=== PATIENT | female | born 1970 | race Caucasian/White ===

== ENCOUNTER 2021-03-27 15:03 | Inpatient (IN) | payer OTHER ==
[2021-03-27] MEDS ORDERED: Sodium Chloride 0.9% 10 ML Syringe FLUSH PRN (16:06)
[2021-03-27] MEDS ORDERED: HYDROmorphone 0.5 MG/0.5 ML Syringe IVPUSH ONE ×2 (16:06→17:47)
--- NOTE | 2021-03-27 16:13 | EDM.PDOC ---
ED HPI GENERAL MEDICAL PROBLEM - General Chief Complaint: Abdominal Pain Stated Complaint: ABDOMINAL PAIN Time Seen by Provider: 03/27/21 15:55 Source of Information: Reports: Patient, RN. Denies: Old Records History Limitations: Reports: No Limitations - History of Present Illness INITIAL COMMENTS - FREE TEXT/NARRATIVE: 50 yo female presents with abdominal pain that was present when she awoke yesterday. Pain has slowly gotten worse since then. Has a reduced appetite. When she does eat it doesn't make her worse. Her appendix and uterus are surgically missing. She has known gallstones. Her pain is throughout her abdomen. Moving worsens her pain. No fever, dysuria, diarrhea, nausea, or constipation. 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 (see below) (none) Upper Epigastric Pain Score (Numeric/FACES): 9 - Related Data Allergies Allergy/AdvReac Type Severity Reaction Status Date / Time levofloxacin [From Levaquin] Allergy Agitation Verified 03/27/21 15:30 Penicillins Allergy Hives Verified 03/27/21 15:30 Home Meds: Home Meds Levothyroxine [Synthroid] 100 mcg IVPUSH DAILY 03/27/21 [History] aMILoride [Midamor] 10 mg PO DAILY 03/27/21 [History] atenoloL [Atenolol] 25 mg PO DAILY 03/27/21 [History] 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: - Infectious Disease History Infectious Disease History: Reports: Chicken Pox - Past Surgical History HEENT Surgical History: Reports: Eye Surgery GI Surgical History: Reports: Appendectomy Female Surgical History: Reports: D&C, Hysterectomy, Other (See Below) Other Female Surgeries/Procedures: bladder sling Musculoskeletal Surgical History: Reports: Other (See Below) Other Musculoskeletal Surgeries/Procedures:: cyst removed from spine Social & Family History - Tobacco Use Tobacco Use Status *Q: Never Tobacco User - Caffeine Use Caffeine Use: Reports: Soda ED ROS GENERAL - Review of Systems Review Of Systems: See Below Constitutional: Reports: Decreased Appetite. Denies: Fever HEENT: Reports: No Symptoms Respiratory: Reports: No Symptoms Cardiovascular: Reports: No Symptoms GI/Abdominal: Reports: Abdominal Pain. Denies: Black Stool, Bloody Stool, Constipation, Diarrhea, Distension, Melena, Nausea, Vomiting : Reports: No Symptoms Musculoskeletal: Reports: No Symptoms Skin: Reports: No Symptoms Neurological: Reports: No Symptoms Psychiatric: Reports: No Symptoms ED EXAM, GI/ABD - Physical Exam Exam: See Below Exam Limited By: No Limitations General Appearance: Alert, WD/WN, No Apparent Distress Eyes: Bilateral: Normal Appearance Ears: Normal External Exam, Normal Canal, Hearing Grossly Normal Nose: Normal Inspection, No Blood Throat/Mouth: Normal Inspection, Normal Lips, Normal Oropharynx, Normal Voice, No Airway Compromise Head: Atraumatic, Normocephalic Neck: Normal Inspection Respiratory/Chest: No Respiratory Distress, Lungs Clear, Normal Breath Sounds, No Accessory Muscle Use Cardiovascular: Regular Rate, Rhythm, No Edema GI/Abdominal Exam: Normal Bowel Sounds, Soft, No Distention, Tender (diffusely). No: Non-Tender, Distended Back Exam: Normal Inspection. No: CVA Tenderness (R), CVA Tenderness (L) Extremities: Normal Inspection, Normal Range of Motion, Non-Tender, No Pedal Edema Neurological: Alert, Oriented, CN II-XII Intact, Normal Cognition, No Motor/Sensory Deficits Psychiatric: Normal Affect, Normal Mood Skin Exam: Warm, Dry, Intact, Normal Color, No Rash Course - Vital Signs Last Recorded V/S: Last Vital Signs Temp 36.1 C 03/27/21 15:26 Pulse 78 03/27/21 18:00 Resp 16 03/27/21 15:26 BP 113/67 03/27/21 18:00 Pulse Ox 91 L 03/27/21 18:00 - Orders/Labs/Meds Orders: Active Orders 24 hr Category Date Time Status Iopamidol [Isovue-300 (61%)] Med 03/27/21 17:15 Active 150 ml IV . DIRECTED Lactated Ringers [Ringers, Lactated] 1,000 ml Med 03/27/21 17:00 Active IV ASDIRECTED Sodium Chloride 0.9% [Normal Saline] 80 ml Med 03/27/21 17:15 Active IV ASDIRECTED Sodium Chloride 0.9% [Saline Flush] Med 03/27/21 16:06 Active 10 ml FLUSH ASDIRECTED PRN Saline Lock Insert [OM.PC] Routine Oth 03/27/21 16:06 Ordered Medication Orders Lactated Ringer's (Ringers, Lactated) 1,000 mls @ 500 mls/hr IV ASDIRECTED NAKIA Sodium Chloride (Normal Saline) 80 mls @ 3 mls/sec IV ASDIRECTED NAKIA Last Admin: 03/27/21 17:16 Dose: 3 mls/sec Documented by: CORTES Iopamidol (Iopamidol 612 Mg/Ml 150 Ml Bottle) 150 ml IV . DIRECTED NAKIA Last Admin: 03/27/21 17:16 Dose: 150 ml Documented by: CORTES Sodium Chloride (Sodium Chloride 0.9% 10 Ml Syringe) 10 ml FLUSH ASDIRECTED PRN PRN Reason: Keep Vein Open Last Admin: 03/27/21 16:37 Dose: 10 ml Documented by: DASIA Labs: Laboratory Tests 03/27/21 03/27/21 03/27/21 Range/Units 16:18 16:18 16:46 WBC 13.1 H (4.5-11.0) K/uL RBC 4.65 (3.30-5.50) M/uL Hgb 13.5 (12.0-15.0) g/dL Hct 41.4 (36.0-48.0) % MCV 89 (80-98) fL MCH 29 (27-31) pg MCHC 33 (32-36) % Plt Count 252 (150-400) K/uL Sodium 142 (140-148) mmol/L Potassium 3.7 (3.6-5.2) mmol/L Chloride 106 (100-108) mmol/L Carbon Dioxide 26 (21-32) mmol/L Anion Gap 9.6 (5.0-14.0) mmol/L BUN 13 (7-18) mg/dL Creatinine 0.9 (0.6-1.0) mg/dL Est Cr Clr Drug Dosing 71.56 mL/min Estimated GFR (MDRD) > 60 (>60) Glucose 110 H (74-106) mg/dL Calcium 8.5 (8.5-10.1) mg/dL Total Bilirubin 0.7 (0.2-1.0) mg/dL AST 14 L (15-37) U/L ALT 22 (12-78) U/L Alkaline Phosphatase 76 (46-116) U/L C-Reactive Protein 12.15 H (0.0-0.3) mg/dL Total Protein 6.7 (6.4-8.2) g/dL Albumin 3.3 L (3.4-5.0) g/dL Globulin 3.4 (2.3-3.5) g/dL Albumin/Globulin Ratio 1.0 L (1.2-2.2) Lipase 60 L (73-393) U/L Urine Color Yellow (YELLOW) Urine Appearance Slightly cloudy A (CLEAR) Urine pH 6.0 (5.0-8.0) Ur Specific [place] 1.025 (1.008-1.030) Urine Protein Negative (NEGATIVE) mg/dL Urine Glucose (UA) 100 H (NEGATIVE) mg/dL Urine Ketones Negative (NEGATIVE) mg/dL Urine Occult Blood Trace-intact H (NEGATIVE) Urine Nitrite Negative (NEGATIVE) Urine Bilirubin Negative (NEGATIVE) Urine Urobilinogen 0.2 (0.2-1.0) EU/dL Ur Leukocyte Esterase Negative (NEGATIVE) Urine RBC 5-10 H (0-5) Urine WBC 0-5 (0-5) Ur Epithelial Cells Moderate Amorphous Sediment Not seen Urine Bacteria Many Urine Mucus Rare Meds: Medications Generic Name Dose Route Start Last Admin Trade Name Freq PRN Reason Stop Dose Admin Lactated Ringer's 1,000 mls @ 500 mls/hr 03/27/21 17:00 Ringers, Lactated IV ASDIRECTED NAKIA Sodium Chloride 80 mls @ 3 mls/sec 03/27/21 17:15 03/27/21 17:16 Normal Saline IV 3 mls/sec ASDIRECTED NAKIA Administration Iopamidol 150 ml 03/27/21 17:15 03/27/21 17:16 Iopamidol 612 Mg/Ml 150 Ml Bottle IV 150 ml . DIRECTED NAKIA Administration Sodium Chloride 10 ml 03/27/21 16:06 03/27/21 16:37 Sodium Chloride 0.9% 10 Ml Syringe FLUSH 10 ml ASDIRECTED PRN Administration Keep Vein Open Discontinued Medications Generic Name Dose Route Start Last Admin Trade Name Freq PRN Reason Stop Dose Admin Hydromorphone HCl 0.5 mg 03/27/21 16:06 03/27/21 16:38 Hydromorphone 0.5 Mg/0.5 Ml Syringe IVPUSH 03/27/21 16:07 0.5 mg ONETIME ONE Administration Hydromorphone HCl 0.5 mg 03/27/21 17:47 03/27/21 17:52 Hydromorphone 0.5 Mg/0.5 Ml Syringe IVPUSH 03/27/21 17:48 0.5 mg ONETIME ONE Administration - Radiology Interpretation Free Text/Narrative:: CT abd/pelvis with IV contrast- IMPRESSION: Acute small-bowel diverticulitis involving a loop of small bowel which extends into the pelvis. Tiny foci of free air within the mesentery, suggest micro perforation. No drainable fluid collection is visualized. Dictated by Sandi Hernandez MD @ 03/27/2021 6:08:[address] Results Date: 03/27/21 Departure - Departure Time of Disposition: 18:20 Disposition: Admitted As Inpatient 68 Condition: Fair Clinical Impression: Small bowel diverticular disease - Discharge Information *PRESCRIPTION DRUG MONITORING PROGRAM REVIEWED*: Not Applicable *COPY OF PRESCRIPTION DRUG MONITORING REPORT IN PATIENT TEE: Not Applicable Referrals: PCP,None [Primary Care Provider] - Forms: ED Department Discharge Sepsis Event Note (ED) - Evaluation Sepsis Screening Result: No Definite Risk - Focused Exam Vital Signs: Vital Signs Temp Pulse Resp BP Pulse Ox 03/27/21 18:00 78 113/67 91 L 03/27/21 16:07 78 138/84 95 03/27/21 15:26 36.1 C 94 16 149/88 H 98 - My Orders Last 24 Hours: My Active Orders 03/27/21 16:06 Sodium Chloride 0.9% [Saline Flush] 10 ml FLUSH ASDIRECTED PRN Saline Lock Insert [OM.PC] Routine 03/27/21 17:00 Lactated Ringers [Ringers, Lactated] 1,000 ml IV ASDIRECTED 03/27/21 17:15 Iopamidol [Isovue-300 (61%)] 150 ml IV . DIRECTED Sodium Chloride 0.9% [Normal Saline] 80 ml IV ASDIRECTED - Assessment/Plan Last 24 Hours: My Active Orders 03/27/21 16:06 Sodium Chloride 0.9% [Saline Flush] 10 ml FLUSH ASDIRECTED PRN Saline Lock Insert [OM.PC] Routine 03/27/21 17:00 Lactated Ringers [Ringers, Lactated] 1,000 ml IV ASDIRECTED 03/27/21 17:15 Iopamidol [Isovue-300 (61%)] 150 ml IV . DIRECTED Sodium Chloride 0.9% [Normal Saline] 80 ml IV ASDIRECTED
[2021-03-27] MEDS ORDERED: Lactated Ringers 1,000 ML IV SCH (17:00)
[2021-03-27] MEDS ORDERED: Iopamidol 612 MG/ML 150 ML Bottle IV SCH (17:15)
[2021-03-27] MEDS ORDERED: Sodium Chloride 0.9% 80 ML IV SCH (17:15)
--- NOTE | 2021-03-27 18:10 | CRLCT ---
For Patients: As a result of the Century Cures Act, medical imaging exams and procedure reports are released immediately into your electronic medical record. You may view this report before your referring provider. If you have questions, please contact your health care provider. INDICATION: Diffuse abdominal pain, leukocytosis TECHNIQUE: CT abdomen and pelvis acquired with IV contrast. Approximately 150 cc of Isovue-300 contrast was administered intravenously. COMPARISON: None FINDINGS: The visualized portions of the lung bases are clear. The liver, spleen, pancreas and adrenal glands are unremarkable. The gallbladder contains gallstone and is nondistended. The kidneys enhance symmetrically without hydronephrosis. A 1.7 cm cyst is present on the right. The bladder is minimally distended and unremarkable. The appendix is not visualized. There are scattered diverticuli of the colon without adjacent inflammatory change. There are diverticuli of the small bowel. There is an abnormal loop of small bowel which extends into the pelvis which demonstrates bowel wall thickening and moderate adjacent fat stranding. There is an inflamed small bowel diverticulum (series 2, image 109). A few foci of air is seen within the adjacent mesentery, suggestive of micro perforation. The bones are unremarkable. IMPRESSION: Acute small-bowel diverticulitis involving a loop of small bowel which extends into the pelvis. Tiny foci of free air within the mesentery, suggest micro perforation. No drainable fluid collection is visualized. Dictated by Sandi Hernandez MD @ 03/27/2021 6:08:40 PM Please note that all CT scans at this facility use dose modulation, iterative reconstruction, and/or weight-based dosing when appropriate to reduce radiation dose to as low as reasonably achievable. Dictated by: Sandi Hernandez MD @ 03/27/2021 18:09:07 (Electronically Signed)
--- NOTE | 2021-03-27 18:57 | PCM.HP.2 ---
H&P History of Present Illness - General Date of Service: 03/27/21 Admit Problem/Dx: Admission Diagnosis/Problem Admission Diagnosis/Problem Diverticulitis Source of Information: Patient, Family, Provider History Limitations: Reports: No Limitations - History of Present Illness Initial Comments - Free Text/Narative: CC: My stomach hurt so bad HPI: Julieth presents to the emergency room with progressive sharp abdominal pain that is centered in the lower part of her abdomen but does radiate throughout her abdomen. Pain started yesterday morning about 36 hours prior to admission. It has steadily progressed since that time. Any sort of movement, laughing or bumps in the car ride make the pain worse. She did try to push fluids and took some Tylenol but this did not help her pain. Initially the pain started in the epigastrium but has migrated down to the pelvis area. She had subjective fevers last night but has not had chills. No nausea or vomiting. No change in her bowel habits. No dysuria or urinary frequency. No skin rashes or lumps or bumps. No sick contacts. She did travel here from [facility] but no concerning food ingestions. She does report a history of diverticulosis but has never had infections. Work-up in the emergency room revealed a mild leukocytosis based on lab studies. CT scan of the abdomen and pelvis suggested small bowel diverticulitis with a loop of intestine down in the pelvis. There is concern for microperforations with some air bubbles noted in the omentum. She will be started on IV antibiotics and admitted to the hospital for further management. 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: - Infectious Disease History Infectious Disease History: Reports: Chicken Pox - Past Surgical History HEENT Surgical History: Reports: Eye Surgery GI Surgical History: Reports: Appendectomy Female Surgical History: Reports: D&C, Hysterectomy, Other (See Below) Other Female Surgeries/Procedures: bladder sling Musculoskeletal Surgical History: Reports: Other (See Below) Other Musculoskeletal Surgeries/Procedures:: cyst removed from spine Social & Family History - Family History GI: Reports: Inflammatory Bowel Disease (sister with Crohn's) - Tobacco Use Tobacco Use Status *Q: Never Tobacco User - Caffeine Use Caffeine Use: Reports: Soda - Alcohol Use Alcohol Use History: No H&P Review of Systems - Review of Systems: Review Of Systems: See Below Free Text/Narrative: A complete 12 point review of systems was obtained. Pertinent positives and negatives are noted in the history of present illness. All other systems were reviewed and were negative except as noted. Exam - Exam Exam: See Below - Vital Signs Vital Signs: Last Vital Signs Temp 36.1 C 03/27/21 15:26 Pulse 78 03/27/21 18:00 Resp 16 03/27/21 15:26 BP 113/67 03/27/21 18:00 Pulse Ox 91 L 03/27/21 18:00 Weight: 90.265 kg - Exam Quality Assessment: No: Supplemental Oxygen General: Alert, Oriented, Cooperative, Mild Distress HEENT: Conjunctiva Clear, Mucosa Moist & [place]. No: Scleral Icterus Neck: Supple, Trachea Midline Lungs: Clear to Auscultation, Normal Respiratory Effort Cardiovascular: Regular Rate, Regular Rhythm. No: Systolic Murmur GI/Abdominal Exam: Soft, No Distention, Tender (moderate diffuse and more intense in epigastrium and suprapubic area ). No: Normal Bowel Sounds (hypoactive ) Back Exam: Normal Inspection, Full Range of Motion Extremities: No Pedal Edema. No: Increased Warmth Peripheral Pulses: 2+: Dorsalis Pedis (L), Dorsalis Pedis (R) Skin: Warm, Dry Neuro Extensive - Mental Status: Alert, Oriented x3, Nl Response to Commands Neuro Extensive - Motor, Sensory, Reflexes: No: Dysarthria, Abnormal Motor, Tremor Psychiatric: Alert, Normal Affect - Patient Data Lab Results Last 24 hrs: Laboratory Results - last 24 hr 03/27/21 03/27/21 03/27/21 Range/Units 16:18 16:18 16:46 WBC 13.1 H (4.5-11.0) K/uL RBC 4.65 (3.30-5.50) M/uL Hgb 13.5 (12.0-15.0) g/dL Hct 41.4 (36.0-48.0) % MCV 89 (80-98) fL MCH 29 (27-31) pg MCHC 33 (32-36) % Plt Count 252 (150-400) K/uL Sodium 142 (140-148) mmol/L Potassium 3.7 (3.6-5.2) mmol/L Chloride 106 (100-108) mmol/L Carbon Dioxide 26 (21-32) mmol/L Anion Gap 9.6 (5.0-14.0) mmol/L BUN 13 (7-18) mg/dL Creatinine 0.9 (0.6-1.0) mg/dL Est Cr Clr Drug Dosing 71.56 mL/min Estimated GFR (MDRD) > 60 (>60) Glucose 110 H (74-106) mg/dL Calcium 8.5 (8.5-10.1) mg/dL Total Bilirubin 0.7 (0.2-1.0) mg/dL AST 14 L (15-37) U/L ALT 22 (12-78) U/L Alkaline Phosphatase 76 (46-116) U/L C-Reactive Protein 12.15 H (0.0-0.3) mg/dL Total Protein 6.7 (6.4-8.2) g/dL Albumin 3.3 L (3.4-5.0) g/dL Globulin 3.4 (2.3-3.5) g/dL Albumin/Globulin Ratio 1.0 L (1.2-2.2) Lipase 60 L (73-393) U/L Urine Color Yellow (YELLOW) Urine Appearance Slightly cloudy A (CLEAR) Urine pH 6.0 (5.0-8.0) Ur Specific [place] 1.025 (1.008-1.030) Urine Protein Negative (NEGATIVE) mg/dL Urine Glucose (UA) 100 H (NEGATIVE) mg/dL Urine Ketones Negative (NEGATIVE) mg/dL Urine Occult Blood Trace-intact H (NEGATIVE) Urine Nitrite Negative (NEGATIVE) Urine Bilirubin Negative (NEGATIVE) Urine Urobilinogen 0.2 (0.2-1.0) EU/dL Ur Leukocyte Esterase Negative (NEGATIVE) Urine RBC 5-10 H (0-5) Urine WBC 0-5 (0-5) Ur Epithelial Cells Moderate Amorphous Sediment Not seen Urine Bacteria Many Urine Mucus Rare Result Diagrams: 03/27/21 16:18 03/27/21 16:18 Imaging Impressions Last 24 hrs: CT abd/pelvis-images personally reviewed-there is a loop of small bowel with an inflamed diverticulum and surrounding stranding. There are gas bubbles in the surrounding omentum suggesting microperforations. there is a right renal cyst. There are 2 gallstones but no evidence for cholecystitis. Sepsis Event Note - Evaluation Sepsis Screening Result: No Definite Risk - Focused Exam Vital Signs: Vital Signs Temp Pulse Resp BP Pulse Ox 03/27/21 18:00 78 113/67 91 L 03/27/21 16:07 78 138/84 95 03/27/21 15:26 36.1 C 94 16 149/88 H 98 *Q Meaningful Use (ADM) - VTE Risk Assess *Q Each Risk Factor Represents 1 Point: Age 41 - 59 years, Obesity ( BMI > 25 kg/m2) Total Score 1 Point Risk Factors: 2 Each Risk Factor Represents 2 Points: None Total Score 2 Point Risk Factors: 0 Each Risk Factor Represents 3 Points: None Total Score 3 Point Risk Factors: 0 Each Risk Factor Represents 5 Points: None Total Score 5 Point Risk Factors: 0 Venous Thromboembolism Risk Factor Score *Q: 2 - Problem List (1) Diverticulitis of small intestine with perforation SNOMED Code(s): 46963935, [id number] ICD Code: K57.00 - DVTRCLI OF SM INT W PERFORATION AND ABSCESS W/O BLEEDING Status: Acute Current Visit: Yes Qualifiers: Diverticulitis bleeding: without bleeding Qualified Code(s): K57.00 - Diverticulitis of small intestine with perforation and abscess without bleeding Problem List Initiated/Reviewed/Updated: Yes Orders Last 24hrs: Active Orders 24 hr Category Date Time Status Patient Status Manage Transfer [TRANSFER] Routine ADT 03/27/21 18:47 Ordered Iopamidol [Isovue-300 (61%)] Med 03/27/21 17:15 Active 150 ml IV . DIRECTED Sodium Chloride 0.9% [Normal Saline] 1,000 ml Med 03/27/21 19:00 Active IV ASDIRECTED Sodium Chloride 0.9% [Saline Flush] Med 03/27/21 16:06 Active 10 ml FLUSH ASDIRECTED PRN cefTRIAXone [Rocephin] 2 gm Med 03/27/21 19:00 Active Sodium Chloride 0.9% [Normal Saline] 50 ml IV Q24H Saline Lock Insert [OM.PC] Routine Oth 03/27/21 16:06 Ordered Resuscitation Status Routine Resus Stat 03/27/21 18:48 Ordered Medication Orders Ceftriaxone Sodium 2 gm/ (Sodium Chloride) 50 mls @ 100 mls/hr IV Q24H NAKIA Sodium Chloride (Normal Saline) 1,000 mls @ 125 mls/hr IV ASDIRECTED NAKIA Iopamidol (Iopamidol 612 Mg/Ml 150 Ml Bottle) 150 ml IV . DIRECTED NAKIA Last Admin: 03/27/21 17:16 Dose: 150 ml Documented by: CORTES Sodium Chloride (Sodium Chloride 0.9% 10 Ml Syringe) 10 ml FLUSH ASDIRECTED PRN PRN Reason: Keep Vein Open Last Admin: 03/27/21 16:37 Dose: 10 ml Documented by: DASIA Assessment/Plan Comment:: ASSESSMENT AND PLAN - Diverticulitis of the small intestine with microperforations-significant pain at this time but no nausea. Vitals are stable. Because of the microperforation she would benefit from at least 24 to 48 hours of IV antibiotics. Surgical consultation may be warranted if condition worsens or does not improve. -IV ceftriaxone and metronidazole -Symptomatic management of pain and nausea -Recheck labs in the morning -IV fluids -Surgical consultation if worsening or not getting better Maintenance issues - -DVT prophylaxis-mechanical -GI prophylaxis-not indicated -Nutrition-full liquids -Ryan catheter-not indicated CODE STATUS -full code Admission justification -this patient will be admitted for inpatient services and is medically appropriate meeting medical necessity for inpatient admission as outlined in my documentation. I reasonably expect the patient will require inpatient services that span a period time over 2 midnights. I reasonably expect this patient to be discharged or transferred within 96 hours [facility]. Disposition -I anticipate discharge home after the hospital stay Primary care physician -Dereck Aggarwal M.D. - Mortality Measure Prognosis:: Good
[2021-03-27] MEDS: cefTRIAXone 2 GM in Sodium Chloride 0.9% 50 ML IV SCH (19:30)
[2021-03-27] MEDS ORDERED: HYDROmorphone 1 MG/ML Syringe IVPUSH PRN (19:33)
[2021-03-27] MEDS ORDERED: Ondansetron 4 MG/2 ML SDV IV PRN (19:33)
[2021-03-27] MEDS ORDERED: LORazepam 2 MG/ML SDV IVPUSH PRN (19:33)
[2021-03-27] MEDS ORDERED: Melatonin 3 MG Tab PO PRN (19:33)
[2021-03-27] MEDS ORDERED: Ondansetron 4 MG Tab.DIS PO PRN (19:33)
[2021-03-27] MEDS ORDERED: Magnesium Hydroxide 400 MG/5 ML Susp 30 ML Cup PO PRN (19:33)
[2021-03-27] MEDS: Sodium Chloride 0.9% 1,000 ML IV SCH (19:49)
[2021-03-27] MEDS: metroNIDAZOLE/Normal Saline 500 MG in Premix Bag 1 BAG IV SCH (20:11)
[2021-03-27] MEDS: Acetaminophen 325 MG Tab PO PRN (20:20)
[2021-03-27] MEDS: Lactobacillus Rhamnosus GG (Probiotic) Cap PO SCH (21:39)
[2021-03-27] MEDS: Ibuprofen 600 MG Tab PO PRN (23:21)
[2021-03-28] MEDS: metroNIDAZOLE/Normal Saline 500 MG in Premix Bag 1 BAG IV SCH ×3 (03:56→19:15)
[2021-03-28] MEDS: oxyCODONE 5 MG Tab PO PRN ×3 (04:08→22:22)
[2021-03-28] MEDS: Sodium Chloride 0.9% 1,000 ML IV SCH (06:08)
[2021-03-28] MEDS: Ibuprofen 600 MG Tab PO PRN (07:47)
[2021-03-28] MEDS ORDERED: Potassium Chloride 20 MEQ Tab.ER PO ONE (09:00)
[2021-03-28] MEDS: Lactobacillus Rhamnosus GG (Probiotic) Cap PO SCH ×2 (09:04→20:33)
[2021-03-28] MEDS: Levothyroxine 100 MCG Tab PO SCH (09:04)
[2021-03-28] MEDS: Atenolol 25 MG Tab PO SCH (09:04)
[2021-03-28] MEDS: aMILoride 5 MG Tab PO SCH (09:05)
--- NOTE | 2021-03-28 11:23 | PCM.PN ---
- General Info Date of Service: 03/28/21 Subjective Update: Ms. Samuel has been stable since admission and feels modestly improved with less abdominal pain. Vital signs have remained stable and she has been afebrile. To lerating full liquid diet without significant difficulty. Functional Status: Reports: Tolerating Diet, Ambulating, Urinating - Review of Systems General: Reports: Weakness, Fatigue. Denies: Fever, Chills Pulmonary: Reports: No Symptoms Cardiovascular: Reports: No Symptoms Gastrointestinal: Reports: Abdominal Pain, Nausea. Denies: Diarrhea, Difficulty Swallowing, Hematochezia, Melena, Vomiting Genitourinary: Reports: No Symptoms - Patient Data Vitals - Most Recent: Last Vital Signs Temp 96 F L 03/28/21 10:51 Pulse 53 L 03/28/21 10:51 Resp 16 03/28/21 10:51 BP 116/75 03/28/21 10:51 Pulse Ox 98 03/28/21 10:51 Weight - Most Recent: 203 lb 12.795 oz I&O - Last 24 Hours: Intake & Output 03/27/21 03/28/21 03/28/21 22:59 06:59 14:59 Intake Total 1612 360 Output Total 875 725 300 Balance -875 887 60 Lab Results Last 24 Hours: Laboratory Results - last 24 hr 03/27/21 03/27/21 03/27/21 Range/Units 16:18 16:18 16:46 WBC 13.1 H (4.5-11.0) K/uL RBC 4.65 (3.30-5.50) M/uL Hgb 13.5 (12.0-15.0) g/dL Hct 41.4 (36.0-48.0) % MCV 89 (80-98) fL MCH 29 (27-31) pg MCHC 33 (32-36) % Plt Count 252 (150-400) K/uL Sodium 142 (140-148) mmol/L Potassium 3.7 (3.6-5.2) mmol/L Chloride 106 (100-108) mmol/L Carbon Dioxide 26 (21-32) mmol/L Anion Gap 9.6 (5.0-14.0) mmol/L BUN 13 (7-18) mg/dL Creatinine 0.9 (0.6-1.0) mg/dL Est Cr Clr Drug Dosing 71.56 mL/min Estimated GFR (MDRD) > 60 (>60) Glucose 110 H (74-106) mg/dL Calcium 8.5 (8.5-10.1) mg/dL Total Bilirubin 0.7 (0.2-1.0) mg/dL AST 14 L (15-37) U/L ALT 22 (12-78) U/L Alkaline Phosphatase 76 (46-116) U/L C-Reactive Protein 12.15 H (0.0-0.3) mg/dL Total Protein 6.7 (6.4-8.2) g/dL Albumin 3.3 L (3.4-5.0) g/dL Globulin 3.4 (2.3-3.5) g/dL Albumin/Globulin Ratio 1.0 L (1.2-2.2) Lipase 60 L (73-393) U/L Urine Color Yellow (YELLOW) Urine Appearance Slightly cloudy A (CLEAR) Urine pH 6.0 (5.0-8.0) Ur Specific [place] 1.025 (1.008-1.030) Urine Protein Negative (NEGATIVE) mg/dL Urine Glucose (UA) 100 H (NEGATIVE) mg/dL Urine Ketones Negative (NEGATIVE) mg/dL Urine Occult Blood Trace-intact H (NEGATIVE) Urine Nitrite Negative (NEGATIVE) Urine Bilirubin Negative (NEGATIVE) Urine Urobilinogen 0.2 (0.2-1.0) EU/dL Ur Leukocyte Esterase Negative (NEGATIVE) Urine RBC 5-10 H (0-5) Urine WBC 0-5 (0-5) Ur Epithelial Cells Moderate Amorphous Sediment Not seen Urine Bacteria Many Urine Mucus Rare 03/28/21 03/28/21 Range/Units 04:25 04:25 WBC 8.3 (4.5-11.0) K/uL RBC 4.06 (3.30-5.50) M/uL Hgb 11.7 L (12.0-15.0) g/dL Hct 36.6 (36.0-48.0) % MCV 90 (80-98) fL MCH 29 (27-31) pg MCHC 32 (32-36) % Plt Count 212 (150-400) K/uL Sodium 143 (140-148) mmol/L Potassium 3.4 L (3.6-5.2) mmol/L Chloride 108 (100-108) mmol/L Carbon Dioxide 27 (21-32) mmol/L Anion Gap 11.4 (5.0-14.0) mmol/L BUN 8 (7-18) mg/dL Creatinine 0.7 (0.6-1.0) mg/dL Est Cr Clr Drug Dosing 92.01 mL/min Estimated GFR (MDRD) > 60 (>60) Glucose 110 H (74-106) mg/dL Calcium 7.7 L (8.5-10.1) mg/dL Total Bilirubin (0.2-1.0) mg/dL AST (15-37) U/L ALT (12-78) U/L Alkaline Phosphatase (46-116) U/L C-Reactive Protein (0.0-0.3) mg/dL Total Protein (6.4-8.2) g/dL Albumin (3.4-5.0) g/dL Globulin (2.3-3.5) g/dL Albumin/Globulin Ratio (1.2-2.2) Lipase (73-393) U/L Urine Color (YELLOW) Urine Appearance (CLEAR) Urine pH (5.0-8.0) Ur Specific [place] (1.008-1.030) Urine Protein (NEGATIVE) mg/dL Urine Glucose (UA) (NEGATIVE) mg/dL Urine Ketones (NEGATIVE) mg/dL Urine Occult Blood (NEGATIVE) Urine Nitrite (NEGATIVE) Urine Bilirubin (NEGATIVE) Urine Urobilinogen (0.2-1.0) EU/dL Ur Leukocyte Esterase (NEGATIVE) Urine RBC (0-5) Urine WBC (0-5) Ur Epithelial Cells Amorphous Sediment Urine Bacteria Urine Mucus Med Orders - Current: Current Medications Acetaminophen (Acetaminophen 325 Mg Tab) 650 mg PO Q4H PRN PRN Reason: Pain (Mild 1-3)/fever Last Admin: 03/27/21 20:20 Dose: 650 mg Documented by: Amiloride HCl (Amiloride 5 Mg Tab) 10 mg PO DAILY [facility] Last Admin: 03/28/21 09:05 Dose: 10 mg Documented by: Atenolol (Atenolol 25 Mg Tab) 25 mg PO DAILY [facility] Last Admin: 03/28/21 09:04 Dose: 25 mg Documented by: Hydromorphone HCl (Hydromorphone 1 Mg/Ml Syringe) 0.5 mg IVPUSH Q2H PRN PRN Reason: Pain (severe 7-10) Ceftriaxone Sodium 2 gm/ (Sodium Chloride) 50 mls @ 100 mls/hr IV Q24H [facility] Last Admin: 03/27/21 19:30 Dose: 100 mls/hr Documented by: Metronidazole 500 mg/ Premix 100 mls @ 100 mls/hr IV Q8H [facility] Last Admin: 03/28/21 03:56 Dose: 100 mls/hr Documented by: Ibuprofen (Ibuprofen 600 Mg Tab) 600 mg PO Q6H PRN PRN Reason: Pain (mild 1-3) Last Admin: 03/28/21 07:47 Dose: 600 mg Documented by: Lactobacillus Rhamnosus (Lactobacillus Rhamnosus Gg (Probiotic) Cap) 1 cap PO BID [facility] Last Admin: 03/28/21 09:04 Dose: 1 cap Documented by: Levothyroxine Sodium (Levothyroxine 100 Mcg Tab) 100 mcg PO ACBREAKFAST [facility] Last Admin: 03/28/21 09:04 Dose: 100 mcg Documented by: Lorazepam (Lorazepam 2 Mg/Ml Sdv) 0.5 mg IVPUSH Q4H PRN PRN Reason: Nausea/Vomiting Magnesium Hydroxide (Magnesium Hydroxide 400 Mg/5 Ml Susp 30 Ml Cup) 30 ml PO Q12H PRN PRN Reason: Constipation Melatonin (Melatonin 3 Mg Tab) 9 mg PO BEDTIME PRN PRN Reason: Sleep Ondansetron HCl (Ondansetron 4 Mg/2 Ml Sdv) 4 mg IV Q6H PRN PRN Reason: Nausea/Vomiting Ondansetron HCl (Ondansetron 4 Mg Tab.Dis) 4 mg PO Q6H PRN PRN Reason: Nausea able to take PO Last Admin: 03/28/21 09:51 Dose: 4 mg Documented by: Oxycodone HCl (Oxycodone 5 Mg Tab) 5 - 10 mg PO Q4H PRN PRN Reason: Pain Last Admin: 03/28/21 04:08 Dose: 5 mg Documented by: Senna/Docusate Sodium (Docusate Sodium/Sennosides 50-8.6 Mg Tab) 1 tab PO BID PRN PRN Reason: Constipation Sodium Chloride (Sodium Chloride 0.9% 10 Ml Syringe) 10 ml FLUSH ASDIRECTED PRN PRN Reason: Keep Vein Open Last Admin: 03/27/21 16:37 Dose: 10 ml Documented by: Discontinued Medications Hydromorphone HCl (Hydromorphone 0.5 Mg/0.5 Ml Syringe) 0.5 mg IVPUSH ONETIME ONE Stop: 03/27/21 16:07 Last Admin: 03/27/21 16:38 Dose: 0.5 mg Documented by: Hydromorphone HCl (Hydromorphone 0.5 Mg/0.5 Ml Syringe) 0.5 mg IVPUSH ONETIME ONE Stop: 03/27/21 17:48 Last Admin: 03/27/21 17:52 Dose: 0.5 mg Documented by: Lactated Ringer's (Ringers, Lactated) 1,000 mls @ 500 mls/hr IV ASDIRECTED [facility] Sodium Chloride (Normal Saline) 80 mls @ 3 mls/sec IV ASDIRECTED [facility] Last Admin: 03/27/21 17:16 Dose: 3 mls/sec Documented by: Sodium Chloride (Normal Saline) 1,000 mls @ 125 mls/hr IV ASDIRECTED [facility] Last Admin: 03/28/21 06:08 Dose: 125 mls/hr Documented by: Iopamidol (Iopamidol 612 Mg/Ml 150 Ml Bottle) 150 ml IV . DIRECTED [facility] Last Admin: 03/27/21 17:16 Dose: 150 ml Documented by: Potassium Chloride (Potassium Chloride 20 Meq Tab.Er) 40 meq PO ONETIME ONE Stop: 03/28/21 09:01 Last Admin: 03/28/21 09:06 Dose: 40 meq Documented by: - Exam Quality Assessment: DVT Prophylaxis General: Alert, Oriented, Cooperative, Moderate Distress Lungs: Clear to Auscultation, Normal Respiratory Effort Cardiovascular: Regular Rate, Regular Rhythm, No Murmurs GI/Abdominal Exam: Soft, No Organomegaly, Tender. No: Distended, Guarding, Rigid, Rebound Extremities: Non-Tender, No Pedal Edema - Patient Data Lab Results Last 24 hrs: Laboratory Results - last 24 hr 03/27/21 03/27/21 03/27/21 Range/Units 16:18 16:18 16:46 WBC 13.1 H (4.5-11.0) K/uL RBC 4.65 (3.30-5.50) M/uL Hgb 13.5 (12.0-15.0) g/dL Hct 41.4 (36.0-48.0) % MCV 89 (80-98) fL MCH 29 (27-31) pg MCHC 33 (32-36) % Plt Count 252 (150-400) K/uL Sodium 142 (140-148) mmol/L Potassium 3.7 (3.6-5.2) mmol/L Chloride 106 (100-108) mmol/L Carbon Dioxide 26 (21-32) mmol/L Anion Gap 9.6 (5.0-14.0) mmol/L BUN 13 (7-18) mg/dL Creatinine 0.9 (0.6-1.0) mg/dL Est Cr Clr Drug Dosing 71.56 mL/min Estimated GFR (MDRD) > 60 (>60) Glucose 110 H (74-106) mg/dL Calcium 8.5 (8.5-10.1) mg/dL Total Bilirubin 0.7 (0.2-1.0) mg/dL AST 14 L (15-37) U/L ALT 22 (12-78) U/L Alkaline Phosphatase 76 (46-116) U/L C-Reactive Protein 12.15 H (0.0-0.3) mg/dL Total Protein 6.7 (6.4-8.2) g/dL Albumin 3.3 L (3.4-5.0) g/dL Globulin 3.4 (2.3-3.5) g/dL Albumin/Globulin Ratio 1.0 L (1.2-2.2) Lipase 60 L (73-393) U/L Urine Color Yellow (YELLOW) Urine Appearance Slightly cloudy A (CLEAR) Urine pH 6.0 (5.0-8.0) Ur Specific [place] 1.025 (1.008-1.030) Urine Protein Negative (NEGATIVE) mg/dL Urine Glucose (UA) 100 H (NEGATIVE) mg/dL Urine Ketones Negative (NEGATIVE) mg/dL Urine Occult Blood Trace-intact H (NEGATIVE) Urine Nitrite Negative (NEGATIVE) Urine Bilirubin Negative (NEGATIVE) Urine Urobilinogen 0.2 (0.2-1.0) EU/dL Ur Leukocyte Esterase Negative (NEGATIVE) Urine RBC 5-10 H (0-5) Urine WBC 0-5 (0-5) Ur Epithelial Cells Moderate Amorphous Sediment Not seen Urine Bacteria Many Urine Mucus Rare 03/28/21 03/28/21 Range/Units 04:25 04:25 WBC 8.3 (4.5-11.0) K/uL RBC 4.06 (3.30-5.50) M/uL Hgb 11.7 L (12.0-15.0) g/dL Hct 36.6 (36.0-48.0) % MCV 90 (80-98) fL MCH 29 (27-31) pg MCHC 32 (32-36) % Plt Count 212 (150-400) K/uL Sodium 143 (140-148) mmol/L Potassium 3.4 L (3.6-5.2) mmol/L Chloride 108 (100-108) mmol/L Carbon Dioxide 27 (21-32) mmol/L Anion Gap 11.4 (5.0-14.0) mmol/L BUN 8 (7-18) mg/dL Creatinine 0.7 (0.6-1.0) mg/dL Est Cr Clr Drug Dosing 92.01 mL/min Estimated GFR (MDRD) > 60 (>60) Glucose 110 H (74-106) mg/dL Calcium 7.7 L (8.5-10.1) mg/dL Total Bilirubin (0.2-1.0) mg/dL AST (15-37) U/L ALT (12-78) U/L Alkaline Phosphatase (46-116) U/L C-Reactive Protein (0.0-0.3) mg/dL Total Protein (6.4-8.2) g/dL Albumin (3.4-5.0) g/dL Globulin (2.3-3.5) g/dL Albumin/Globulin Ratio (1.2-2.2) Lipase (73-393) U/L Urine Color (YELLOW) Urine Appearance (CLEAR) Urine pH (5.0-8.0) Ur Specific [place] (1.008-1.030) Urine Protein (NEGATIVE) mg/dL Urine Glucose (UA) (NEGATIVE) mg/dL Urine Ketones (NEGATIVE) mg/dL Urine Occult Blood (NEGATIVE) Urine Nitrite (NEGATIVE) Urine Bilirubin (NEGATIVE) Urine Urobilinogen (0.2-1.0) EU/dL Ur Leukocyte Esterase (NEGATIVE) Urine RBC (0-5) Urine WBC (0-5) Ur Epithelial Cells Amorphous Sediment Urine Bacteria Urine Mucus Result Diagrams: 03/28/21 04:25 03/28/21 04:25 Sepsis Event Note - Evaluation Sepsis Screening Result: No Definite Risk - Focused Exam Vital Signs: Vital Signs Temp Pulse Pulse Resp BP BP Pulse Ox 03/28/21 10:51 96 F L 53 L 16 116/75 98 03/28/21 09:04 60 115/73 03/28/21 07:00 96 F L 60 16 115/73 97 03/28/21 03:00 95.8 F L 66 16 100/58 L 99 - Problem List Review Problem List Initiated/Reviewed/Updated: Yes - My Orders Last 24 Hours: My Active Orders 03/28/21 11:20 Convert IV to Saline Lock [OM.PC] Routine 03/29/21 05:00 BASIC METABOLIC PANEL,BMP [CHEM] Timed CBC WITH AUTO DIFF [HEME] Timed - Plan Plan:: ASSESSMENT AND PLAN - Diverticulitis of the small intestine with microperforations-improved since admission with less abdominal pain. Vital signs have been stable and she has remained afebrile. Tolerating full liquid diet without difficulty. -IV ceftriaxone and metronidazole -Symptomatic management of pain and nausea -Recheck labs in the morning -IV fluids -Surgical consultation if worsening or not getting better Maintenance issues - -DVT prophylaxis-mechanical -GI prophylaxis-not indicated -Nutrition-full liquids -Ryan catheter-not indicated CODE STATUS -full code Admission justification -this patient will be admitted for inpatient services and is medically appropriate meeting medical necessity for inpatient admission as outlined in my documentation. I reasonably expect the patient will require inpatient services that span a period time over 2 midnights. I reasonably expect this patient to be discharged or transferred within 96 hours [facility]. Disposition -I anticipate discharge home after the hospital stay Primary care physician -Dercek Costa
[2021-03-28] MEDS: cefTRIAXone 2 GM in Sodium Chloride 0.9% 50 ML IV SCH (18:01)
[2021-03-29] MEDS ORDERED: diphenhydrAMINE 25 MG Cap PO PRN
[2021-03-29] MEDS: metroNIDAZOLE/Normal Saline 500 MG in Premix Bag 1 BAG IV SCH ×3 (03:39→20:28)
[2021-03-29] MEDS: Acetaminophen 325 MG Tab PO PRN ×2 (04:50→08:41)
[2021-03-29] MEDS: traMADol 50 MG Tab PO PRN ×2 (04:54→13:42)
[2021-03-29] MEDS: Atenolol 25 MG Tab PO SCH (08:40)
[2021-03-29] MEDS: Levothyroxine 100 MCG Tab PO SCH (08:41)
[2021-03-29] MEDS: Lactobacillus Rhamnosus GG (Probiotic) Cap PO SCH ×2 (08:41→20:32)
[2021-03-29] MEDS: aMILoride 5 MG Tab PO SCH (08:41)
--- NOTE | 2021-03-29 15:31 | PCM.PN ---
- General Info Date of Service: 03/29/21 Subjective Update: Ms. Samuel has remained fairly stable over the past 24 hours. She continues to tolerate a full liquid diet. Abdominal pain has improved but not totally resolved. No significant temperature elevations or hemodynamic instability. Functional Status: Reports: Tolerating Diet, Ambulating, Urinating - Review of Systems General: Reports: Weakness, Fatigue. Denies: Fever, Chills Pulmonary: Reports: No Symptoms Cardiovascular: Reports: No Symptoms Gastrointestinal: Reports: Abdominal Pain, Nausea. Denies: Diarrhea, Difficulty Swallowing, Hematochezia, Melena, Vomiting Genitourinary: Reports: No Symptoms - Patient Data Vitals - Most Recent: Last Vital Signs Temp 96.9 F 03/29/21 12:24 Pulse 52 L 03/29/21 12:24 Resp 16 03/29/21 12:24 BP 118/70 03/29/21 12:24 Pulse Ox 96 03/29/21 12:24 Weight - Most Recent: 203 lb 12.795 oz I&O - Last 24 Hours: Intake & Output 03/29/21 03/29/21 03/29/21 06:59 14:59 22:59 Intake Total 800 1240 Balance 800 1240 Lab Results Last 24 Hours: Laboratory Results - last 24 hr 03/29/21 03/29/21 Range/Units 04:35 04:35 WBC 5.2 (4.5-11.0) K/uL RBC 3.86 (3.30-5.50) M/uL Hgb 11.2 L (12.0-15.0) g/dL Hct 35.2 L (36.0-48.0) % MCV 91 (80-98) fL MCH 29 (27-31) pg MCHC 32 (32-36) % Plt Count 221 (150-400) K/uL Neut % (Auto) 63.8 (36-66) % Lymph % (Auto) 24.6 (24-44) % [place] % (Auto) 7.8 H (2-6) % Eos % (Auto) 3.4 (2-4) % Baso % (Auto) 0.4 (0-1) % Sodium 143 (140-148) mmol/L Potassium 3.9 (3.6-5.2) mmol/L Chloride 108 (100-108) mmol/L Carbon Dioxide 29 (21-32) mmol/L Anion Gap 5.8 (5.0-14.0) mmol/L BUN 5 L (7-18) mg/dL Creatinine 0.7 (0.6-1.0) mg/dL Est Cr Clr Drug Dosing 92.51 mL/min Estimated GFR (MDRD) > 60 (>60) Glucose 94 (74-106) mg/dL Calcium 7.8 L (8.5-10.1) mg/dL Med Orders - Current: Current Medications Acetaminophen (Acetaminophen 325 Mg Tab) 650 mg PO Q4H PRN PRN Reason: Pain (Mild 1-3)/fever Last Admin: 03/29/21 08:41 Dose: 650 mg Documented by: Amiloride HCl (Amiloride 5 Mg Tab) 10 mg PO DAILY [facility] Last Admin: 03/29/21 08:41 Dose: 10 mg Documented by: Atenolol (Atenolol 25 Mg Tab) 25 mg PO DAILY [facility] Last Admin: 03/29/21 08:40 Dose: 25 mg Documented by: Diphenhydramine HCl (Diphenhydramine 25 Mg Cap) 25 mg PO Q6H PRN PRN Reason: Itching Last Admin: 03/29/21 00:07 Dose: 25 mg Documented by: Hydromorphone HCl (Hydromorphone 1 Mg/Ml Syringe) 0.5 mg IVPUSH Q2H PRN PRN Reason: Pain (severe 7-10) Ceftriaxone Sodium 2 gm/ (Sodium Chloride) 50 mls @ 100 mls/hr IV Q24H [facility] Last Admin: 03/28/21 18:01 Dose: 100 mls/hr Documented by: Metronidazole 500 mg/ Premix 100 mls @ 100 mls/hr IV Q8H [facility] Last Admin: 03/29/21 12:25 Dose: 100 mls/hr Documented by: Ibuprofen (Ibuprofen 600 Mg Tab) 600 mg PO Q6H PRN PRN Reason: Pain (mild 1-3) Last Admin: 03/28/21 07:47 Dose: 600 mg Documented by: Lactobacillus Rhamnosus (Lactobacillus Rhamnosus Gg (Probiotic) Cap) 1 cap PO BID [facility] Last Admin: 03/29/21 08:41 Dose: 1 cap Documented by: Levothyroxine Sodium (Levothyroxine 100 Mcg Tab) 100 mcg PO ACBREAKFAST [facility] Last Admin: 03/29/21 08:41 Dose: 100 mcg Documented by: Lorazepam (Lorazepam 2 Mg/Ml Sdv) 0.5 mg IVPUSH Q4H PRN PRN Reason: Nausea/Vomiting Magnesium Hydroxide (Magnesium Hydroxide 400 Mg/5 Ml Susp 30 Ml Cup) 30 ml PO Q12H PRN PRN Reason: Constipation Melatonin (Melatonin 3 Mg Tab) 9 mg PO BEDTIME PRN PRN Reason: Sleep Last Admin: 03/28/21 22:22 Dose: 9 mg Documented by: Ondansetron HCl (Ondansetron 4 Mg/2 Ml Sdv) 4 mg IV Q6H PRN PRN Reason: Nausea/Vomiting Ondansetron HCl (Ondansetron 4 Mg Tab.Dis) 4 mg PO Q6H PRN PRN Reason: Nausea able to take PO Last Admin: 03/28/21 09:51 Dose: 4 mg Documented by: Senna/Docusate Sodium (Docusate Sodium/Sennosides 50-8.6 Mg Tab) 1 tab PO BID PRN PRN Reason: Constipation Last Admin: 03/29/21 12:27 Dose: 1 tab Documented by: Sodium Chloride (Sodium Chloride 0.9% 10 Ml Syringe) 10 ml FLUSH ASDIRECTED PRN PRN Reason: Keep Vein Open Last Admin: 03/27/21 16:37 Dose: 10 ml Documented by: Tramadol HCl (Tramadol 50 Mg Tab) 50 mg PO Q6H PRN PRN Reason: Pain Last Admin: 03/29/21 13:42 Dose: 50 mg Documented by: Discontinued Medications Hydromorphone HCl (Hydromorphone 0.5 Mg/0.5 Ml Syringe) 0.5 mg IVPUSH ONETIME ONE Stop: 03/27/21 16:07 Last Admin: 03/27/21 16:38 Dose: 0.5 mg Documented by: Hydromorphone HCl (Hydromorphone 0.5 Mg/0.5 Ml Syringe) 0.5 mg IVPUSH ONETIME ONE Stop: 03/27/21 17:48 Last Admin: 03/27/21 17:52 Dose: 0.5 mg Documented by: Lactated Ringer's (Ringers, Lactated) 1,000 mls @ 500 mls/hr IV ASDIRECTED [facility] Sodium Chloride (Normal Saline) 80 mls @ 3 mls/sec IV ASDIRECTED [facility] Last Admin: 03/27/21 17:16 Dose: 3 mls/sec Documented by: Sodium Chloride (Normal Saline) 1,000 mls @ 125 mls/hr IV ASDIRECTED [facility] Last Admin: 03/28/21 06:08 Dose: 125 mls/hr Documented by: Iopamidol (Iopamidol 612 Mg/Ml 150 Ml Bottle) 150 ml IV . DIRECTED [facility] Last Admin: 03/27/21 17:16 Dose: 150 ml Documented by: Oxycodone HCl (Oxycodone 5 Mg Tab) 5 - 10 mg PO Q4H PRN PRN Reason: Pain Last Admin: 03/28/21 22:22 Dose: 5 mg Documented by: Potassium Chloride (Potassium Chloride 20 Meq Tab.Er) 40 meq PO ONETIME ONE Stop: 03/28/21 09:01 Last Admin: 03/28/21 09:06 Dose: 40 meq Documented by: - Exam Quality Assessment: DVT Prophylaxis General: Alert, Oriented, Cooperative, Mild Distress Lungs: Clear to Auscultation, Normal Respiratory Effort, Decreased Breath Sounds Cardiovascular: Regular Rate, Regular Rhythm, No Murmurs GI/Abdominal Exam: Soft, No Organomegaly, Tender. No: Distended, Guarding, Rigid, Rebound Extremities: Non-Tender, No Pedal Edema - Patient Data Lab Results Last 24 hrs: Laboratory Results - last 24 hr 03/29/21 03/29/21 Range/Units 04:35 04:35 WBC 5.2 (4.5-11.0) K/uL RBC 3.86 (3.30-5.50) M/uL Hgb 11.2 L (12.0-15.0) g/dL Hct 35.2 L (36.0-48.0) % MCV 91 (80-98) fL MCH 29 (27-31) pg MCHC 32 (32-36) % Plt Count 221 (150-400) K/uL Neut % (Auto) 63.8 (36-66) % Lymph % (Auto) 24.6 (24-44) % Caroline % (Auto) 7.8 H (2-6) % Eos % (Auto) 3.4 (2-4) % Baso % (Auto) 0.4 (0-1) % Sodium 143 (140-148) mmol/L Potassium 3.9 (3.6-5.2) mmol/L Chloride 108 (100-108) mmol/L Carbon Dioxide 29 (21-32) mmol/L Anion Gap 5.8 (5.0-14.0) mmol/L BUN 5 L (7-18) mg/dL Creatinine 0.7 (0.6-1.0) mg/dL Est Cr Clr Drug Dosing 92.51 mL/min Estimated GFR (MDRD) > 60 (>60) Glucose 94 (74-106) mg/dL Calcium 7.8 L (8.5-10.1) mg/dL Result Diagrams: 03/29/21 04:35 03/29/21 04:35 Sepsis Event Note - Evaluation Sepsis Screening Result: No Definite Risk - Focused Exam Vital Signs: Vital Signs Temp Pulse Pulse Resp BP BP Pulse Ox 03/29/21 12:24 96.9 F 52 L 16 118/70 96 03/29/21 08:40 84 122/75 03/29/21 08:35 96.5 F L 84 16 122/75 94 L 03/29/21 03:37 96.7 F L 62 16 98/47 L 96 - Problem List Review Problem List Initiated/Reviewed/Updated: Yes - Plan Plan:: ASSESSMENT AND PLAN Diverticulitis of the small intestine with microperforations-improved since admission with less abdominal pain. Vital signs have been stable and she has remained afebrile. Tolerating full liquid diet without difficulty. -IV ceftriaxone and metronidazole -Symptomatic management of pain and nausea -Surgical consultation if worsening or not getting better Maintenance issues - -DVT prophylaxis-mechanical -GI prophylaxis-not indicated -Nutrition-full liquids -Ryan catheter-not indicated CODE STATUS -full code Admission justification -this patient will be admitted for inpatient services and is medically appropriate meeting medical necessity for inpatient admission as outlined in my documentation. I reasonably expect the patient will require inpatient services that span a period time over 2 midnights. I reasonably expect this patient to be discharged or transferred within 96 hours [facility]. Disposition -I anticipate discharge home after the hospital stay Primary care physician -Dereck Costa
[2021-03-29] MEDS: cefTRIAXone 2 GM in Sodium Chloride 0.9% 50 ML IV SCH (19:36)
[2021-03-30] MEDS: metroNIDAZOLE/Normal Saline 500 MG in Premix Bag 1 BAG IV SCH ×3 (03:13→20:08)
[2021-03-30] MEDS: traMADol 50 MG Tab PO PRN (07:39)
[2021-03-30] MEDS: Levothyroxine 100 MCG Tab PO SCH (07:39)
[2021-03-30] MEDS: Atenolol 25 MG Tab PO SCH (09:55)
[2021-03-30] MEDS: Lactobacillus Rhamnosus GG (Probiotic) Cap PO SCH ×2 (09:55→20:10)
[2021-03-30] MEDS: aMILoride 5 MG Tab PO SCH (09:55)
--- NOTE | 2021-03-30 10:50 | PCM.PN ---
- General Info Date of Service: 03/30/21 Subjective Update: Ms. Samuel has remained stable over the last 24 hours. Energy level has improved and she has been able to be walking in the hallways without significant pain. Pain has almost totally resolved but does recur at times. Vital signs have remained stable and she has been afebrile. Functional Status: Reports: Tolerating Diet, Ambulating, Urinating - Review of Systems General: Reports: No Symptoms Pulmonary: Reports: No Symptoms Cardiovascular: Reports: No Symptoms Gastrointestinal: Reports: Abdominal Pain. Denies: Difficulty Swallowing, Hematochezia, Melena, Nausea, Vomiting Genitourinary: Reports: No Symptoms - Patient Data Vitals - Most Recent: Last Vital Signs Temp 96.8 F L 03/30/21 10:31 Pulse 56 L 03/30/21 10:31 Resp 18 03/30/21 10:31 BP 136/80 03/30/21 10:31 Pulse Ox 97 03/30/21 10:31 Weight - Most Recent: 203 lb 12.795 oz I&O - Last 24 Hours: Intake & Output 03/29/21 03/30/21 03/30/21 22:59 06:59 14:59 Intake Total 720 750 Balance 720 750 Med Orders - Current: Current Medications Acetaminophen (Acetaminophen 325 Mg Tab) 650 mg PO Q4H PRN PRN Reason: Pain (Mild 1-3)/fever Last Admin: 03/29/21 08:41 Dose: 650 mg Documented by: Amiloride HCl (Amiloride 5 Mg Tab) 10 mg PO DAILY [facility] Last Admin: 03/30/21 09:55 Dose: 10 mg Documented by: Atenolol (Atenolol 25 Mg Tab) 25 mg PO DAILY [facility] Last Admin: 03/30/21 09:55 Dose: 25 mg Documented by: Diphenhydramine HCl (Diphenhydramine 25 Mg Cap) 25 mg PO Q6H PRN PRN Reason: Itching Last Admin: 03/29/21 00:07 Dose: 25 mg Documented by: Hydromorphone HCl (Hydromorphone 1 Mg/Ml Syringe) 0.5 mg IVPUSH Q2H PRN PRN Reason: Pain (severe 7-10) Ceftriaxone Sodium 2 gm/ (Sodium Chloride) 50 mls @ 100 mls/hr IV Q24H [facility] Last Admin: 03/29/21 19:36 Dose: 100 mls/hr Documented by: Metronidazole 500 mg/ Premix 100 mls @ 100 mls/hr IV Q8H [facility] Last Admin: 03/30/21 03:13 Dose: 100 mls/hr Documented by: Ibuprofen (Ibuprofen 600 Mg Tab) 600 mg PO Q6H PRN PRN Reason: Pain (mild 1-3) Last Admin: 03/28/21 07:47 Dose: 600 mg Documented by: Lactobacillus Rhamnosus (Lactobacillus Rhamnosus Gg (Probiotic) Cap) 1 cap PO BID [facility] Last Admin: 03/30/21 09:55 Dose: 1 cap Documented by: Levothyroxine Sodium (Levothyroxine 100 Mcg Tab) 100 mcg PO ACBREAKFAST [facility] Last Admin: 03/30/21 07:39 Dose: 100 mcg Documented by: Lorazepam (Lorazepam 2 Mg/Ml Sdv) 0.5 mg IVPUSH Q4H PRN PRN Reason: Nausea/Vomiting Magnesium Hydroxide (Magnesium Hydroxide 400 Mg/5 Ml Susp 30 Ml Cup) 30 ml PO Q12H PRN PRN Reason: Constipation Melatonin (Melatonin 3 Mg Tab) 9 mg PO BEDTIME PRN PRN Reason: Sleep Last Admin: 03/28/21 22:22 Dose: 9 mg Documented by: Ondansetron HCl (Ondansetron 4 Mg/2 Ml Sdv) 4 mg IV Q6H PRN PRN Reason: Nausea/Vomiting Ondansetron HCl (Ondansetron 4 Mg Tab.Dis) 4 mg PO Q6H PRN PRN Reason: Nausea able to take PO Last Admin: 03/28/21 09:51 Dose: 4 mg Documented by: Senna/Docusate Sodium (Docusate Sodium/Sennosides 50-8.6 Mg Tab) 1 tab PO BID PRN PRN Reason: Constipation Last Admin: 03/29/21 12:27 Dose: 1 tab Documented by: Sodium Chloride (Sodium Chloride 0.9% 10 Ml Syringe) 10 ml FLUSH ASDIRECTED PRN PRN Reason: Keep Vein Open Last Admin: 03/27/21 16:37 Dose: 10 ml Documented by: Tramadol HCl (Tramadol 50 Mg Tab) 50 mg PO Q6H PRN PRN Reason: Pain Last Admin: 03/30/21 07:39 Dose: 50 mg Documented by: Discontinued Medications Hydromorphone HCl (Hydromorphone 0.5 Mg/0.5 Ml Syringe) 0.5 mg IVPUSH ONETIME ONE Stop: 03/27/21 16:07 Last Admin: 03/27/21 16:38 Dose: 0.5 mg Documented by: Hydromorphone HCl (Hydromorphone 0.5 Mg/0.5 Ml Syringe) 0.5 mg IVPUSH ONETIME ONE Stop: 03/27/21 17:48 Last Admin: 03/27/21 17:52 Dose: 0.5 mg Documented by: Lactated Ringer's (Ringers, Lactated) 1,000 mls @ 500 mls/hr IV ASDIRECTED NAKIA Sodium Chloride (Normal Saline) 80 mls @ 3 mls/sec IV ASDIRECTED NAKIA Last Admin: 03/27/21 17:16 Dose: 3 mls/sec Documented by: Sodium Chloride (Normal Saline) 1,000 mls @ 125 mls/hr IV ASDIRECTED [facility] Last Admin: 03/28/21 06:08 Dose: 125 mls/hr Documented by: Iopamidol (Iopamidol 612 Mg/Ml 150 Ml Bottle) 150 ml IV . DIRECTED [facility] Last Admin: 03/27/21 17:16 Dose: 150 ml Documented by: Oxycodone HCl (Oxycodone 5 Mg Tab) 5 - 10 mg PO Q4H PRN PRN Reason: Pain Last Admin: 03/28/21 22:22 Dose: 5 mg Documented by: Potassium Chloride (Potassium Chloride 20 Meq Tab.Er) 40 meq PO ONETIME ONE Stop: 03/28/21 09:01 Last Admin: 03/28/21 09:06 Dose: 40 meq Documented by: - Exam General: Alert, Oriented, Cooperative, Mild Distress Lungs: Clear to Auscultation, Normal Respiratory Effort Cardiovascular: Regular Rate, Regular Rhythm, No Murmurs GI/Abdominal Exam: Soft, No Organomegaly, Tender. No: Distended, Guarding, Rigid, Rebound Back Exam: Normal Inspection, Full Range of Motion Extremities: Non-Tender, No Pedal Edema - Patient Data Result Diagrams: 03/29/21 04:35 03/29/21 04:35 Sepsis Event Note - Evaluation Sepsis Screening Result: No Definite Risk - Focused Exam Vital Signs: Vital Signs Temp Pulse Pulse Resp BP BP Pulse Ox 03/30/21 10:31 96.8 F L 56 L 18 136/80 97 03/30/21 09:55 65 132/71 03/30/21 07:23 96.6 F L 65 18 132/71 96 03/30/21 03:09 97 F 58 L 16 109/66 98 03/29/21 23:27 97.6 F 75 16 122/64 97 - Problem List Review Problem List Initiated/Reviewed/Updated: Yes - My Orders Last 24 Hours: My Active Orders 03/30/21 Breakfast GI Soft Low Fiber [Soft Diet] [DIET] - Plan Plan:: ASSESSMENT AND PLAN Diverticulitis of the small intestine with microperforations-improved since admission with less abdominal pain. Vital signs have been stable and she has remained afebrile. -IV ceftriaxone and metronidazole -Symptomatic management of pain and nausea -Surgical consultation if worsening or not getting better -Soft low residue diet Maintenance issues - -DVT prophylaxis-mechanical -GI prophylaxis-not indicated -Nutrition-full liquids -Ryan catheter-not indicated CODE STATUS -full code Admission justification -this patient will be admitted for inpatient services and is medically appropriate meeting medical necessity for inpatient admission as outlined in my documentation. I reasonably expect the patient will require inpatient services that span a period time over 2 midnights. I reasonably expect this patient to be discharged or transferred within 96 hours [facility] Disposition -I anticipate discharge home tomorrow Primary care physician -Dereck Georgia
[2021-03-30] MEDS: cefTRIAXone 2 GM in Sodium Chloride 0.9% 50 ML IV SCH (18:10)
[2021-03-31] MEDS: metroNIDAZOLE/Normal Saline 500 MG in Premix Bag 1 BAG IV SCH (04:15)
[2021-03-31] MEDS: Lactobacillus Rhamnosus GG (Probiotic) Cap PO SCH (08:43)
[2021-03-31] MEDS: aMILoride 5 MG Tab PO SCH (08:44)
[2021-03-31] MEDS: Atenolol 25 MG Tab PO SCH (08:44)
[2021-03-31] MEDS: Levothyroxine 100 MCG Tab PO SCH (08:44)
--- NOTE | 2021-03-31 11:33 | PCM.DCSUM1 ---
Discharge Summary - Hospital Course Brief History: Ms. Samuel is a 50-year-old woman who was admitted through the emergency department with abdominal pain and nausea secondary to small bowel diverticulitis. - Discharge Data Discharge Date: 03/31/21 Discharge Disposition: Home, Self-Care 01 Condition: Good - Referral to Home Health Primary Care Physician: PCP None - Discharge Diagnosis/Problem(s) (1) Small bowel diverticular disease SNOMED Code(s): 561992098 ICD Code: K57.10 - DVRTCLOS OF SM INT W/O PERFORATION OR ABSCESS W/O BLEEDING Status: Acute Current Visit: Yes (2) Diverticulitis of small intestine with perforation SNOMED Code(s): 82192743, [id number] ICD Code: K57.00 - DVTRCLI OF SM INT W PERFORATION AND ABSCESS W/O BLEEDING Status: Acute Current Visit: Yes Qualifiers: Diverticulitis bleeding: without bleeding Qualified Code(s): K57.00 - Diverticulitis of small intestine with perforation and abscess without bleeding - Patient Summary/Data Hospital Course: Ms. Samuel presented to the emergency room with progressive sharp abdominal pain that is centered in the lower part of her abdomen but does radiate throughout her abdomen. Pain started yesterday morning about 36 hours prior to admission. It has steadily progressed since that time. Any sort of movement, laughing or bumps in the car ride make the pain worse. She did try to push fluids and took some Tylenol but this did not help her pain. Initially the pain started in the epigastrium but has migrated down to the pelvis area. She did travel here from [facility] but no concerning food ingestions. She does report a history of diverticulosis but has never had infections. Work-up in the emergency room revealed a mild leukocytosis based on lab studies. CT scan of the abdomen and pelvis suggested small bowel diverticulitis with a loop of intestine down in the pelvis. There is concern for microperforations with some air bubbles noted in the omentum. She will be started on IV antibiotics and admitted to the hospital for further management. On admission she was given IV fluids for hydration and continued on IV antibiotic therapy with ceftriaxone and metronidazole. These antibiotics were chosen because of the patient's history of allergic reaction to levofloxacin and penicillins. She gradually improved over the next several days of hospitalization with less abdominal pain. By the time of discharge pain had almost resolved totally. Nausea vomiting resolved and she was started on a full liquid diet which she tolerated without difficulty. By the time of discharge she was on a soft low residue diet which was tolerated well. She remained afebrile as well as hemodynamically stable. Activity will be as tolerated and she will remain on a soft low residue diet over the next few weeks. She will be discharged home with an additional 10 days of oral antibiotic therapy with Omnicef and metronidazole. She will be treated with a more prolonged course of antibiotics because of the microperforations. Follow-up appointment will be scheduled with her primary care provider within 1 week. - Patient Instructions Diet: GI Soft/Low Residue/Low Fiber Activity: As Tolerated Other/Special Instructions: Please schedule follow-up appointment with primary care provider within 1 week. - Discharge Plan *PRESCRIPTION DRUG MONITORING PROGRAM REVIEWED*: Not Applicable *COPY OF PRESCRIPTION DRUG MONITORING REPORT IN PATIENT TEE: Not Applicable Prescriptions/Med Rec: metroNIDAZOLE [Flagyl] 500 mg PO Q8H #30 tab Cefdinir [Omnicef] 300 mg PO BID #20 cap Home Medications: Home Meds Levothyroxine [Synthroid] 100 mcg PO ACBREAKFAST 03/27/21 [History] aMILoride [Midamor] 10 mg PO DAILY 03/27/21 [History] atenoloL [Atenolol] 25 mg PO DAILY 03/27/21 [History] Cefdinir [Omnicef] 300 mg PO BID #20 cap 03/31/21 [Rx] metroNIDAZOLE [Flagyl] 500 mg PO Q8H #30 tab 03/31/21 [Rx] Patient Handouts: Diverticulitis, [id number]-Smom, Low-Fiber Eating Plan - Discharge Summary/Plan Comment DC Time >30 min.: No - Patient Data Vitals - Most Recent: Last Vital Signs Temp 97.4 F 03/31/21 07:00 Pulse 60 03/31/21 08:44 Resp 18 03/31/21 07:00 BP 134/80 03/31/21 08:44 Pulse Ox 95 03/31/21 07:00 Weight - Most Recent: 203 lb 12.795 oz I&O - Last 24 hours: Intake & Output 03/30/21 03/31/21 03/31/21 22:59 06:59 14:59 Intake Total 100 100 Balance 100 100 Med Orders - Current: Current Medications Acetaminophen (Acetaminophen 325 Mg Tab) 650 mg PO Q4H PRN PRN Reason: Pain (Mild 1-3)/fever Last Admin: 03/29/21 08:41 Dose: 650 mg Documented by: Amiloride HCl (Amiloride 5 Mg Tab) 10 mg PO DAILY [facility] Last Admin: 03/31/21 08:44 Dose: 10 mg Documented by: Atenolol (Atenolol 25 Mg Tab) 25 mg PO DAILY [facility] Last Admin: 03/31/21 08:44 Dose: 25 mg Documented by: Diphenhydramine HCl (Diphenhydramine 25 Mg Cap) 25 mg PO Q6H PRN PRN Reason: Itching Last Admin: 03/29/21 00:07 Dose: 25 mg Documented by: Hydromorphone HCl (Hydromorphone 1 Mg/Ml Syringe) 0.5 mg IVPUSH Q2H PRN PRN Reason: Pain (severe 7-10) Ceftriaxone Sodium 2 gm/ (Sodium Chloride) 50 mls @ 100 mls/hr IV Q24H [facility] Last Admin: 03/30/21 18:10 Dose: 100 mls/hr Documented by: Metronidazole 500 mg/ Premix 100 mls @ 100 mls/hr IV Q8H [facility] Last Admin: 03/31/21 04:15 Dose: 100 mls/hr Documented by: Ibuprofen (Ibuprofen 600 Mg Tab) 600 mg PO Q6H PRN PRN Reason: Pain (mild 1-3) Last Admin: 03/28/21 07:47 Dose: 600 mg Documented by: Lactobacillus Rhamnosus (Lactobacillus Rhamnosus Gg (Probiotic) Cap) 1 cap PO BID [facility] Last Admin: 03/31/21 08:43 Dose: 1 cap Documented by: Levothyroxine Sodium (Levothyroxine 100 Mcg Tab) 100 mcg PO ACBREAKFAST [facility] Last Admin: 03/31/21 08:44 Dose: 100 mcg Documented by: Lorazepam (Lorazepam 2 Mg/Ml Sdv) 0.5 mg IVPUSH Q4H PRN PRN Reason: Nausea/Vomiting Magnesium Hydroxide (Magnesium Hydroxide 400 Mg/5 Ml Susp 30 Ml Cup) 30 ml PO Q12H PRN PRN Reason: Constipation Melatonin (Melatonin 3 Mg Tab) 9 mg PO BEDTIME PRN PRN Reason: Sleep Last Admin: 03/28/21 22:22 Dose: 9 mg Documented by: Ondansetron HCl (Ondansetron 4 Mg/2 Ml Sdv) 4 mg IV Q6H PRN PRN Reason: Nausea/Vomiting Ondansetron HCl (Ondansetron 4 Mg Tab.Dis) 4 mg PO Q6H PRN PRN Reason: Nausea able to take PO Last Admin: 03/28/21 09:51 Dose: 4 mg Documented by: Senna/Docusate Sodium (Docusate Sodium/Sennosides 50-8.6 Mg Tab) 1 tab PO BID PRN PRN Reason: Constipation Last Admin: 03/29/21 12:27 Dose: 1 tab Documented by: Sodium Chloride (Sodium Chloride 0.9% 10 Ml Syringe) 10 ml FLUSH ASDIRECTED PRN PRN Reason: Keep Vein Open Last Admin: 03/27/21 16:37 Dose: 10 ml Documented by: Tramadol HCl (Tramadol 50 Mg Tab) 50 mg PO Q6H PRN PRN Reason: Pain Last Admin: 03/30/21 07:39 Dose: 50 mg Documented by: Discontinued Medications Hydromorphone HCl (Hydromorphone 0.5 Mg/0.5 Ml Syringe) 0.5 mg IVPUSH ONETIME ONE Stop: 03/27/21 16:07 Last Admin: 03/27/21 16:38 Dose: 0.5 mg Documented by: Hydromorphone HCl (Hydromorphone 0.5 Mg/0.5 Ml Syringe) 0.5 mg IVPUSH ONETIME ONE Stop: 03/27/21 17:48 Last Admin: 03/27/21 17:52 Dose: 0.5 mg Documented by: Lactated Ringer's (Ringers, Lactated) 1,000 mls @ 500 mls/hr IV ASDIRECTED [facility] Sodium Chloride (Normal Saline) 80 mls @ 3 mls/sec IV ASDIRECTED [facility] Last Admin: 03/27/21 17:16 Dose: 3 mls/sec Documented by: Sodium Chloride (Normal Saline) 1,000 mls @ 125 mls/hr IV ASDIRECTED [facility] Last Admin: 03/28/21 06:08 Dose: 125 mls/hr Documented by: Iopamidol (Iopamidol 612 Mg/Ml 150 Ml Bottle) 150 ml IV . DIRECTED [facility] Last Admin: 03/27/21 17:16 Dose: 150 ml Documented by: Oxycodone HCl (Oxycodone 5 Mg Tab) 5 - 10 mg PO Q4H PRN PRN Reason: Pain Last Admin: 03/28/21 22:22 Dose: 5 mg Documented by: Potassium Chloride (Potassium Chloride 20 Meq Tab.Er) 40 meq PO ONETIME ONE Stop: 03/28/21 09:01 Last Admin: 03/28/21 09:06 Dose: 40 meq Documented by:
== END 2021-03-31 12:15 | disposition home or self-care (01) | DRG 392 ==
LOC: JP.ED 15:03 → JP.MS 18:47
PROVIDERS: ADMIT Hospitalist; ATTEND Internal Medicine
DX: K57.00 Diverticulitis of small intestine with perforation and abscess without bleeding (principal); Z88.1 Allergy status to other antibiotic agents; Z88.0 Allergy status to penicillin; Z90.49 Acquired absence of other specified parts of digestive tract; Z90.710 Acquired absence of both cervix and uterus
CPT/HCPCS: 36415; 74177; 80048; 80053; 81001; 83690; 85025; 85027; 86140; 96374; 96376; 99285-25; A9270-GY; J0696; J1170; J3490; J7030; Q9967